=== PATIENT | female | born 1995 | race Caucasian/White ===

== ENCOUNTER → 2020-11-16 13:48 | Outpatient (CLI) | payer BC, SELFPAY ==
--- NOTE | ~2020-11-16 | US_ITS ---
EXAMINATION: US pelvic complete EXAM DATE: 11/16/2020 14:05 INDICATION: Pelvic pain. TECHNIQUE: Pelvic transabdominal sonogram was performed. There are multiple grayscale and Doppler im ages available for interpretation. Comparison is made to prior examination from 08/06/2017. FINDINGS: Uterus measures 7.3 x 2.9 x 5.5 cm, is anteverted and morphologically normal. Endometrial stripe measures 7 mm, within normal limits. There is no free pelvic fluid. Right adnexa: The ovary measures 2.4 x 1.5 x 2.0 cm and is morphologically normal. Ovarian vascular f low confirmed. Left adnexa: The ovary measures 2.5 x 1.1 x 2.2 cm and is morphologically normal. Ovarian vascular fl ow confirmed. IMPRESSION: 1. Unremarkable pelvic ultrasound exam. Reviewed, dictated and finalized at location A. T MARKETING SPECIALIST
== END ==
PROVIDERS: Visit Provider Nurse Practitioner
DX: R10.2 Pelvic and perineal pain (principal)
CPT/HCPCS: 76856

== ENCOUNTER 2021-01-25 13:21 | Outpatient (CLI) | payer BC, SELFPAY ==
--- NOTE | ~2021-01-25 | CT_ITS ---
EXAMINATION: CT sinus wo con DATE: 01/25/2021 13:40 INDICATION: Chronic sinusitis TECHNIQUE: Computed tomography (CT) of the paranasal sinuses was performed without contrast. Iterativ e reconstruction technique was employed. Exam dose: 255.64 mGy-cm total exam DLP. COMPARISON: 12/21/2016 CT sinuses FINDINGS: There is mild rightward bowing of the nasal septum. There is prominent asymmetric soft tiss ue thickening of the right inferior nasal turbinate. There is opacification of the maxillary ostium and infundibulum bilaterally. There is complete opacification of the right frontal and diminutive left frontal sinuses and extensiv e patchy opacification of ethmoid air cells bilaterally. There is mildly prominent mucoperiosteal thi ckening of the maxillary and sphenoid sinuses. These findings are substantially increased compared to . The mastoid air cells are normally developed and aerated. IMPRESSION: Mild rightward bowing of nasal septum Asymmetric right inferior nasal turbinate soft tissue swelling Opacification of ostiomeatal units Pansinusitis Reviewed, dictated and finalized at Location A. Reviewed, dictated and finalized at location A.
== END 2021-01-25 13:22 | disposition home or self-care (01) ==
LOC: ANHIMG 13:27
PROVIDERS: Visit Provider Otolaryngology
DX: J32.9 Chronic sinusitis, unspecified (principal); J34.89 Other specified disorders of nose and nasal sinuses; J34.3 Hypertrophy of nasal turbinates; J34.2 Deviated nasal septum
CPT/HCPCS: 70486

== ENCOUNTER → 2021-02-08 01:24 | Outpatient (CLI) | payer BC, SELFPAY ==
[2021-02-09 19:27] LABS: SARS-CoV-2 RNA PCR Negative
== END ==
PROVIDERS: Visit Provider Otolaryngology
DX: Z01.812 Encounter for preprocedural laboratory examination (principal); Z20.822 Contact with and (suspected) exposure to COVID-19
CPT/HCPCS: C9803; U0003; U0005

== ENCOUNTER 2021-02-11 00:57 | Day surgery (SDC) | payer BC, SELFPAY ==
[2021-02-02 08:59] VITALS: BMI 53.6
--- NOTE | 2021-02-10 09:24 | PM.IMHP ---
H&P: HPI History of Present Illness Date/Time: 02/10/21 09:24 25-year-old female presents with a history of chronic sinusitis with nasal polyps as well as nasal obstruction septal deviation and turbinate hypertrophy. Presents for planned surgical procedure. Reports no new symptoms or changes in medical history. Chief Complaint: Chronic sinusitis, recurrent sinusitis, nasal obstruction, septal deviation, inferior turbinate hypertrophy, nasal congestion, nasal polyps Review of Systems Constitutional: Constitutional: Denies fatigue, Denies fever(s) and Denies lethargy Eyes: Eyes: Denies blurry vision and Denies change in vision ENT: Reports as per HPI Cardiovascular: Cardiovascular: Denies chest pain Respiratory: Respiratory: Denies cough Endocrine: Endocrine: Denies fatigue Hematologic/Lymphatic: Hematologic/Lymphatic: Denies easy bleeding, Denies easy bruising and Denies lymphadenopathy Allergic/Immunologic: Allergic/Immunologic: Denies seasonal rhinorrhea [facility] Past Medical History Medical History (Updated 02/10/21 @ 09:25 by Vel Kinney MD) Anemia Anxiety Arthritis Asthma Bleeding gums Bleeding nose Chronic headaches Depression Food allergy History of hoarseness Keratosis Latex allergy Left ankle sprain Peroneal neuritis Sciatica associated with disorder of lumbar spine Seasonal allergies Seizures SOB (shortness of breath) on exertion Vision loss Weight gain Family History Family History (Updated 01/06/21 @ 10:31 by Steph Rivas CMA) Mother Asthma Grandparent Asthma Cancer Diabetes mellitus Hypertension Depression Heart disease Cerebrovascular accident Thyroid disorder COPD (chronic obstructive pulmonary disease) Other Arthritis Neuropathy Social History Social History (Updated 01/06/21 @ 10:31 by Steph Rivas CMA) Smoking status: Never smoker Alcohol intake: never Substance use: never Substance use type: does not use Gender identity (if verbalized by the patient): Female Spiritual care concerns: No Meds Home Medications and Allergies Home Medications Medication Instructions Recorded Confirmed Type cholecalciferol (vitamin D3) 25 100 mcg PO DAILY 06/02/20 02/02/21 History mcg (1,000 unit) capsule montelukast 10 mg tablet 10 mg PO DAILY 06/02/20 02/02/21 History azelastine 137 mcg (0.1 %) nasal 137 mcg NASAL DAILY 06/03/20 02/02/21 History spray aerosol alprazolam 0.5 mg tablet 0.5 mg PO DAILY PRN 01/06/21 02/02/21 History biotin 10,000 mcg PO DAILY 02/02/21 02/02/21 History budesonide 2 spray INTRANASAL BID 02/02/21 02/02/21 History kpjfstz-zdfjiicgw-ghqy 1 tablet PO DAILY 02/02/21 02/02/21 History cetirizine 10 mg PO DAILY 02/02/21 02/02/21 History famotidine 20 mg PO MONTHLY 02/02/21 02/02/21 History hfhllrplbqf-czoezyyza-kbordzty 1 inh INHALATION DAILY 02/02/21 02/02/21 History [Trelegy Ellipta] levalbuterol tartrate 2 inh INHALATION Q6H PRN 02/02/21 02/02/21 History levonorgestrel-ethinyl estrad 1 tablet PO HS 02/02/21 02/02/21 History [Lutera (28)] sertraline 100 mg PO DAILY 02/02/21 02/02/21 History Allergies Allergy/AdvReac Type Severity Reaction Status Date / Time garlic Allergy Severe Anaphylactic Verified 02/02/21 08:51 Shock mold Allergy Severe Anaphylactic Verified 02/02/21 08:51 Shock latex Allergy Intermediate Rash Verified 02/02/21 08:51 prednisone Allergy Intermediate elevated Verified 02/02/21 08:51 heart rate hydrocodone AdvReac Severe Vomiting Verified 02/02/21 08:51 Grass Allergy Mild hives Uncoded 02/02/21 08:51 Exam Const: General: cooperative, healthy appearing, comfortable, well developed and alert HENMT: Head: normal to inspection, normocephalic and atraumatic Ears: hearing grossly normal bilaterally, external ears normal, TM's normal bilaterally and EAC's normal General nose exam: Normal external nose present, Normal nares present, nasal polyps, mucous membranes a
--- NOTE | 2021-02-10 10:24 | WPDANESEPPF ---
Anes - Initial Pre Proc Eval Procedure: Operation Date: 02/11/21 08:00 Proposed Procedures p Septoplasty - Vel Kinney MD s Image Guided Bilateral Inferior Turbinectomy, Bilateral Maxillary Antrostomy, Total Ethmoidectomy, Sphenoidotomy, Frontal Sinusotomy - Vel Kinney MD Date/Time: 02/10/21 10:24 Surgeon: Vel Kinney MD Pre Op Diagnosis: septal deviation, chronic sinusitis Patient Data Age: 25 Gender: F Height: 1.52 m Weight: 124.74 kg Allergies Allergy/AdvReac Type Severity Reaction Status Date / Time garlic Allergy Severe Anaphylactic Verified 02/02/21 08:51 Shock mold Allergy Severe Anaphylactic Verified 02/02/21 08:51 Shock latex Allergy Intermediate SKIN Verified 02/11/21 06:42 BUBBLY AND TURNS PURPLE prednisone Allergy Intermediate elevated Verified 02/02/21 08:51 heart rate hydrocodone AdvReac Severe Vomiting Verified 02/02/21 08:51 Grass AdvReac Mild WATERY Uncoded 02/11/21 06:42 EYES/SKIN BURNING Home Medications Medication Instructions Recorded Confirmed Type cholecalciferol (vitamin D3) 25 100 mcg PO DAILY 06/02/20 02/11/21 History mcg (1,000 unit) capsule montelukast 10 mg tablet 10 mg PO DAILY 06/02/20 02/11/21 History azelastine 137 mcg (0.1 %) nasal 137 mcg NASAL DAILY 06/03/20 02/11/21 History spray aerosol alprazolam 0.5 mg tablet 0.5 mg PO DAILY PRN 01/06/21 02/11/21 History biotin 10,000 mcg PO DAILY 02/02/21 02/11/21 History budesonide 2 spray INTRANASAL BID 02/02/21 02/11/21 History nennqil-slngfmmwh-nuju 1 tablet PO DAILY 02/02/21 02/11/21 History cetirizine 10 mg PO DAILY 02/02/21 02/11/21 History famotidine 20 mg PO MONTHLY 02/02/21 02/11/21 History iwagibkncdb-jumwrxzjz-wpdtiqdz 1 inh INHALATION DAILY 02/02/21 02/11/21 History [Trelegy Ellipta] levalbuterol tartrate 2 inh INHALATION Q6H PRN 02/02/21 02/11/21 History levonorgestrel-ethinyl estrad 1 tablet PO HS 02/02/21 02/11/21 History [Lutera (28)] sertraline 100 mg PO DAILY 02/02/21 02/11/21 History Patient hx anesthesia problems: none Family hx anesthesia problems: none PMFSH Past Medical History Medical History (Updated 02/10/21 @ 09:25 by Vel Kinney MD) Anemia Anxiety Arthritis Asthma Bleeding gums Bleeding nose Chronic headaches Depression Food allergy History of hoarseness Keratosis Latex allergy Left ankle sprain Peroneal neuritis Sciatica associated with disorder of lumbar spine Seasonal allergies Seizures SOB (shortness of breath) on exertion Vision loss Weight gain Family History Family History (Updated 01/06/21 @ 10:31 by Steph Rivas CMA) Mother Asthma Grandparent Asthma Cancer Diabetes mellitus Hypertension Depression Heart disease Cerebrovascular accident Thyroid disorder COPD (chronic obstructive pulmonary disease) Other Arthritis Neuropathy Social History Social History (Updated 01/06/21 @ 10:31 by Steph Rivas CMA) Smoking status: Never smoker Alcohol intake: never Substance use: never Substance use type: does not use Living arrangements: with family Gender identity (if verbalized by the patient): Female Spiritual care concerns: No Anes - Eval Final PreProcedure Day of Procedure 02/10/21 10:24 Patient weight: super morbidly obese Heart: regular rate and rhythm Lungs: clear to auscultation and normal air movement Airway: Mallampati scale class III Neurological: alert and oriented Last oral intake: >/= 8 hours ASA classification: III Emergent: no Anesthetic plan: proceed Anesthesia type and monitoring: general ETT and standard monitoring Informed Consent: The patient's anesthetic plan and its attendant risks and benefits were discussed with the patient/family/POA. Questions were solicited and answers provided to the satisfaction of the patient/family/POA.
[2021-02-11] VITALS (14 sets, daily range): BP systolic 125–161; BP diastolic 72–94; PULSE 81–126; RESP 16–22; TEMP 36.3–36.4; O2SAT 94–100
[2021-02-11] MEDS: ACETAMINOPHEN 500 MG TABLET 1000 MG PO (06:52)
--- NOTE | 2021-02-11 07:02 | WPDHPUPDATE1 ---
History and Physical Update Update Date/Time: 02/11/21 07:02 History and Physical has been reviewed, including an updated exam of the patient. There are NO changes in the patient's condition. Risks, benefits, and alternatives have been discussed and questions answered. Patient agrees to proceed with procedure.
[2021-02-11] MEDS: LACTATED RINGERS 1,000 ML 30 ML IV CONT ×3 (07:10→12:35)
[2021-02-11] MEDS: ceFAZolin SODIUM 1 GM VIAL IV PUSH (08:05)
[2021-02-11] MEDS: ceFAZolin 2 GM/D5W 50 ML 2 GM/50 ML BAG IVPB (08:05)
[2021-02-11] MEDS: OXYMETAZOLINE HCL 0.05% NAS 15 ML BTL (*BKC) 1 SPRAY NASAL (08:20)
[2021-02-11] MEDS: LIDO 1%/EPINEPHRINE 1:100,000 50 ML VIAL INFILTRATE (08:47)
[2021-02-11] MEDS: fentaNYL CITRATE INJ (*CRX) 100 MCG/2 ML VIAL 25 MCG IV PUSH ×4 (11:36→12:28)
--- NOTE | 2021-02-11 11:57 | PM.PROC ---
Procedure Note - Detailed Date of procedure: 02/11/21 Pre-op diagnosis: septal deviation, chronic sinusitis Nasal polyps inferior turbinate hypertrophy Post-op diagnosis: same (Other than septal deviation) Procedure performed: 1. Bilateral endoscopic maxillary antrostomies 2. Bilateral endoscopic total ethmoidectomies 3. Bilateral endoscopic sphenoidotomies with tissue removal bilaterally 4. Endoscopic frontal sinusotomies 5. Right frontal sinusotomy drill out 6. Inferior turbinate reduction without fracture 7. Bilateral middle turbinectomies Description of procedure: The patient was correctly identified and consent was verified in the preoperative holding area. The patient was then brought to the operating room and a time-out was performed. General anesthesia was induced and endotracheal tube was secured the patient's airway and taped to the left lower lip. The patient was then prepped and draped for the aforementioned procedures. Image guidance was initiated. Afrin-soaked pledgets were placed for 5 minutes the bilateral nasal passages then removed. Under endoscopic guidance the bilateral nasal passages reviewed. Nasal polyps and purulence were noted in the bilateral middle meati eye. The septum was relatively midline and nonobstructive. The inferior turbinates were hypertrophied. A backbiter was utilized to complete the bilateral maxillary antrostomies. Total ethmoidectomies were completed using a Kerrison as well as micro debrider. The sphenoid os is were identified and widened using sphenoid punches micro debrider and care since of note edematous polypoid tissue was located in the bilateral sphenoid sinuses and removed. The frontal sinuses were located, the left being very small this was opened easily using Kerrison under 70 degree endoscopic guidance and Cobra frontal sinus instruments. The right was located and only able to be cannulated using the frontal sinus seeker. At this point the decision was made to drill out the sinus. The will turbinates were then removed provide easy access. The left was removed because it contained edematous polypoid tissue emanating from it. The right also had this characteristic. High speed his 70 degree drill was then utilized to perform a frontal sinus drill out on the right the entire time under endoscopic guidance. When the new duke ostium was wide enough surgery ended. A propel mini stent was placed in the right frontal sinus duke ostium. The bilateral inferior turbinates were outfractured and debrided of edematous polypoid tissue and mulberry tips. There were then cauterized with Bovie suction electrocautery. Of note the bilateral middle turbinates Tums were also cauterized and hemostasis was excellent. This marked the end the procedure. Care the patient was turned over to Anesthesiology. I performed all dictated portions. Surgeon: Vel Kinney MD Estimated blood loss (mL): 100 Drains: No Packing: No Pathology: none sent Complications: No immediate complications Condition: stable Disposition: PACU
[2021-02-11] MEDS: ONDANSETRON INJ 4 MG/2 ML VIAL IV PUSH (12:39)
[2021-02-11] MEDS: ONDANSETRON HCL ODT 4 MG TABLET PO (14:42)
== END 2021-02-11 15:18 | disposition home or self-care (01) ==
PROVIDERS: Visit Provider Otolaryngology
PROC: (CPT 30999; 2021-02-11 08:00)
DX: J34.2 Deviated nasal septum (principal); J32.9 Chronic sinusitis, unspecified; J33.9 Nasal polyp, unspecified; J34.3 Hypertrophy of nasal turbinates; Z79.51 Long term (current) use of inhaled steroids; J45.909 Unspecified asthma, uncomplicated; D64.9 Anemia, unspecified; F41.8 Other specified anxiety disorders; E66.01 Morbid (severe) obesity due to excess calories; Z68.43 Body mass index [BMI] 50.0-59.9, adult
CPT/HCPCS: 30999; 31256; 31257; 31253; 61782; 30140; A9270; C2625; J0330; J0690; J1100; J2250; J2405; J2704; J3010; J7030; J7120

== ENCOUNTER → 2022-04-11 12:44 | Outpatient (CLI) | payer BC, SELFPAY ==
--- NOTE | ~2022-04-11 | US_ITS ---
EXAMINATION: US pelvic complete DATE: 04/11/2022 14:05 INDICATION: Left lower quadrant pain Comparison:11/16/2020 TECHNIQUE: Multiple transabdominal and endovaginal sonographic images of the pelvis performed. FINDINGS: The uterus measures 6.4 x 2.6 x 5.5 cm. The endometrial complex measures 5 mm. The right ovary measures 2.8 x 1.7 x 2.8 cm and the left ovary measures 2.5 x 2.4 x 2.3 cm. There ar e small follicles in each ovary. Normal doppler signal in both ovaries. There is no free fluid in the pelvis. There are no abnormal masses seen on either side. IMPRESSION: 1. Unremarkable pelvic ultrasound. Reviewed, dictated and finalized at location A.
== END ==
PROVIDERS: PCP Nurse Practitioner; Visit Provider Nurse Practitioner
DX: R10.2 Pelvic and perineal pain (principal)
CPT/HCPCS: 76856

== ENCOUNTER 2022-08-03 18:05 | Emergency (ER) | payer BC, SELFPAY ==
--- NOTE | ~2022-08-03 | CT_ITS ---
EXAMINATION: CT abdomen pelvis w con INDICATION: Left lower quadrant pain TECHNIQUE: Computed tomographic images of the abdomen and pelvis were obtained after the administrati on of 100 cc of Omnipaque 350 intravenous contrast. The dose-length product (DLP) was 1589.99 mGy-cm. Automated exposure control and iterative reconstruction technique were employed. COMPARISON: None available FINDINGS: A calcified granuloma is present in the right middle lobe. The heart size is normal. The li abhijit, spleen, pancreas, gallbladder, and adrenal glands are normal. The kidneys are unremarkable. No p athologically enlarged abdominal or pelvic lymph nodes are identified. There is no free intraperitone al gas or evidence of bowel obstruction. The appendix is normal. IMPRESSION: 1. No CT correlate for the patient's symptoms. Reviewed, dictated and finalized at location F. CTURAL RIGGER
[2022-08-03 18:28] VITALS: BP 147/85; PULSE 120; RESP 16; TEMP 36.6; O2SAT 99
[2022-08-03 18:47] LABS: Basophils Absolute Auto 0.1 K/mm3 (0.0-0.1); Basophils Percent Auto 0.4 % (0.2-1.2); Eosinophils Absolute Auto 0.1 K/mm3 (0-0.3); Hematocrit 40.5 % (37.0-47.0); Hemoglobin 13.5 g/dL (12.0-15.0); Immature Granulocyte Absolute 0.06 K/mm3 (0.00-0.031); Immature Granulocyte Percent A 0.5 % (0-0.5); Lymphocytes Absolute Auto 2.93 K/mm3 (0.9-3.2); Lymphocytes Percent Auto 22.4 % (18.3-44.2); Mean Corpuscular HGB Conc 33.3 g/dl (32-36); Mean Corpuscular Hemoglobin 30.5 pg (26-34); Mean Corpuscular Volume 91.4 fl (80-100); Mean Platelet Volume 9.8 fl (7.4-10.4); Monocytes Absolute Auto 0.8 K/mm3 (0.1-0.6); Monocytes Percent Auto 5.9 % (2.6-8.5); Neutrophils Absolute Auto 9.1 K/mm3 (1.3-6.7); Neutrophils Percent Auto 69.8 % (45.5-73.1); Platelet Count Result 322 k/mm3 (150-375); Red Blood Count 4.43 M/mm3 (4.2-5.4); Red Cell Distribution Width 13.5 % (11.5-14.5); White Blood Count 13.1 K/mm3 (4.5-10.0)
[2022-08-03 19:13] LABS: Beta HCG Quantitative < 2.39 mIU/ML
--- NOTE | 2022-08-03 21:14 | ED.GENADULT ---
HPI - General Adult General Chief complaint: Abdominal Pain Stated complaint: ectopic, pain Time Seen by Provider: 08/03/22 20:48 History of Present Illness HPI narrative: Patient is a 26-year-old female who presents the emergency department with chief complaint of left lower quadrant pain. Patient reports that she has recently had a positive test and some symptoms with her negative test reports that she had some heavy bleeding and subsequently that is tapered off and currently is not having any vaginal bleeding or vaginal discharge patient reports she has history of IBS and reported that she started having pain in the left lower quadrant patient states pain is sharp worse with movement and improved with rest patient denies fever denies chills denies vomiting or diarrhea. Related Data Home Medications Medication Instructions Recorded Confirmed montelukast 10 mg tablet 10 mg PO DAILY 06/02/20 07/06/22 biotin 10,000 mcg capsule 10,000 mcg PO DAILY 02/02/21 07/06/22 cetirizine 10 mg tablet 10 mg PO DAILY 02/02/21 07/06/22 fluticasone fur. 200 mcg-umeclid 1 inh inhalation DAILY 02/02/21 07/06/22 62.5 mcg-vilant 25 mcg inhalat.powder (Trelegy Ellipta) levalbuterol tartrate 45 2 inh inhalation Q6H PRN 02/02/21 07/06/22 mcg/actuation aerosol inhaler Bronchospasm metformin 500 mg tablet 500 mg PO BID 06/09/21 07/06/22 dupilumab 300 mg/2 mL subcutaneous 300 mg subcut ONCE 10/03/21 07/06/22 pen injector ([employer]) cholecalciferol (vitamin D3) 250 250 mcg PO .COMPLEX 06/29/22 07/06/22 mcg (10,000 unit) capsule sertraline 100 mg tablet 100 mg PO DAILY 06/29/22 07/06/22 vitamin B complex 1 tablet PO DAILY 06/29/22 07/06/22 famotidine 10 mg tablet 10 mg PO DAILY 07/06/22 07/06/22 Allergies Allergy/AdvReac Type Severity Reaction Status Date / Time garlic Allergy Severe Anaphylactic Verified 07/06/22 09:54 Shock mold Allergy Severe Anaphylactic Verified 07/06/22 09:54 Shock latex Allergy Intermediate SKIN Verified 07/06/22 09:54 BUBBLY AND TURNS PURPLE prednisone Allergy Intermediate elevated Verified 07/06/22 09:54 heart rate hydrocodone AdvReac Severe Vomiting Verified 07/06/22 09:54 Grass AdvReac Mild WATERY Uncoded 06/29/22 10:10 EYES/SKIN BURNING Review of Systems Review of Systems: A 10 system review of systems was completed on the patient and is negative except for what is stated in the HPI. Nursing and ancillary documentation was reviewed. PMFSH Past Medical History Medical History Anemia Anxiety Arthritis Asthma Bleeding gums Bleeding nose Chronic headaches Depression Food allergy History of hoarseness Keratosis Latex allergy Left ankle sprain Nausea & vomiting Obese Peroneal neuritis Regurgitation of food Sciatica associated with disorder of lumbar spine Seasonal allergies Seizures SOB (shortness of breath) on exertion Vision loss Weight gain Family History Family History Mother Asthma Grandparent Asthma Cancer Diabetes mellitus Hypertension Depression Heart disease Cerebrovascular accident Thyroid disorder COPD (chronic obstructive pulmonary disease) Other Arthritis Family history of arthritis Neuropathy Social History Social History Social History: Caffeine- occasionally soda Smoking status: Never smoker Alcohol intake: current Alcohol use details: 1 per year Substance use: never Substance use type: does not use Gender identity (if verbalized by the patient): Female Sexual Orientation (if Verbalized by the Patient): Straight or Heterosexual Spiritual care concerns: No Exam Narrative: GENERAL: Well-appearing, well-nourished, and in no acute distress. HEAD: Normocephalic, atraumatic. EYES: PERRLA a
[2022-08-03] MEDS: ONDANSETRON INJ 4 MG/2 ML VIAL IV PUSH (21:18)
[2022-08-03] MEDS: SODIUM CHLORIDE 0.9% IV 1,000 ML 999 ML IV CONT (21:18)
[2022-08-03 21:46] LABS: Alanine Aminotransferase 23 U/L (6-35); Albumin Level 4.1 g/dL (3.5-5.1); Alkaline Phosphatase 93 U/L (38-126); Anion Gap 12 mmol/L (8-16); Aspartate Amino Transferase 33 U/L (14-36); Bilirubin,Total 0.4 mg/dL (0.2-1.3); Blood Urea Nitrogen 18 mg/dL (7-17); Calcium 9.2 mg/dL (8.4-10.2); Carbon Dioxide 22 mmol/L (22-30); Chloride 104 mmol/L (98-107); Estimated CRCL calculation 116 ml/min; Estimated Glomerular Filt Rate > 60; Glucose 97 mg/dL (65-110); Lipase 85 U/L (23-300); Sodium 138 mmol/L (137-145)
== END 2022-08-03 23:15 | disposition home or self-care (01) ==
PROVIDERS: Emergency Medicine; Emergency Provider Emergency Medicine; PCP Emergency Medicine
DX: R10.32 Left lower quadrant pain (principal); M19.90 Unspecified osteoarthritis, unspecified site; F41.9 Anxiety disorder, unspecified; J45.909 Unspecified asthma, uncomplicated; F32.9 Major depressive disorder, single episode, unspecified; G40.909 Epilepsy, unspecified, not intractable, without status epilepticus
CPT/HCPCS: 36415; 74177; 80053; 83690; 84702; 85025; 85461; 86850; 86900; 86901; 96361; 96374; 99284; J2405; J7030; Q9967

== ENCOUNTER 2022-11-07 13:10 | Outpatient (CLI) | payer BC, SELFPAY ==
--- NOTE | ~2022-11-07 | US_ITS ---
Pelvic ultrasound. Clinical History: Pelvic pain Technique: Realtime transabdominal scanning of the pelvis was performed. Color flow Doppler and Doppl er spectral analysis were performed. Findings: The uterus is anteverted. The endometrial stripe has a thickness of 4 mm. No focal mass is identified. The right ovary measures 2.6 x 1.5 x 2.3 cm. No significant right ovarian or adnexal mass is seen. The left ovary measures 1.6 x 2.3 x 1.5 cm. No significant left ovarian or adnexal mass is seen. *Flow present in both ovaries on Doppler spectral analysis. There is no evidence of free fluid in the cul de sac. Impression: Unremarkable pelvic ultrasound. Reviewed, dictated and finalized at location . E CARPENTER HELPER Impression: Unremarkable pelvic ultrasound.
== END 2022-11-07 13:11 ==
PROVIDERS: PCP Emergency Medicine; Visit Provider Nurse Practitioner
DX: R10.2 Pelvic and perineal pain (principal)
CPT/HCPCS: 76856

== ENCOUNTER → 2022-12-15 13:46 | Outpatient (CLI) | payer BC, SELFPAY ==
--- NOTE | ~2022-12-15 | US_ITS ---
EXAMINATION: US OB transvaginal DATE: 12/15/2022 14:16 INDICATION: First trimester dating TECHNIQUE: Real-time pelvic transabdominal and transvaginal ultrasound was performed. COMPARISON: None. FINDINGS: The uterus measures 7.3 x 4 x 4.3 cm. There is an intrauterine gestational sac. A yolk sac is identified. heart motion is identified measuring 124 beats per minute (bpm) by M-mode Dopple r. The crown rump length measures 5 mm, which correlates with an estimated gestational age of 6 weeks and 1 day(s) (+/-) 4 day(s). The left ovary is not visualized however no left adnexal abnormality is seen. The right ovary measure s 3.6 x 2.2 x 2.8 cm. There is normal vascular flow in the right ovary. There is no free fluid in the pelvis. IMPRESSION: 1. Live intrauterine with an estimated gestational age of 6 weeks and 1 day(s) (+/-) 4 day( s) and an estimated delivery date of 08/09/2023. Reviewed, dictated and finalized at location F. IMPRESSION: 1. Live intrauterine with an estimated gestational age of 6 weeks and 1 day(s) (+/-) 4 day(s) and an estimated delivery date of 08/09/2023.
== END ==
PROVIDERS: PCP Emergency Medicine; Visit Provider Obstetrics & Gynecology Gynecology
DX: Z36.87 Encounter for antenatal screening for uncertain dates (principal); Z3A.01 Less than 8 weeks gestation of pregnancy
CPT/HCPCS: 76817

== ENCOUNTER → 2022-12-28 13:35 | Outpatient (CLI) | payer BC, SELFPAY ==
--- NOTE | ~2022-12-28 | US_ITS ---
Pelvic ultrasound. Clinical History: First trimester , vaginal bleeding Technique: Realtime transabdominal and transvaginal scanning of the pelvis was performed. Color flow Doppler and Doppler spectral analysis were performed. Findings: The uterus is anteverted. Intrauterine gestation is present, with estimated gestational age of 8 weeks 0 days based on crown-rump length of 1.6 cm. Subchorionic hemorrhage measures 6 mm in max imum diameter. heart rate is 169 bpm.. Neither ovary visualized. No other adnexal mass seen. There is no evidence of free fluid in the cul de sac. Impression: Live intrauterine gestation with estimated gestational age of 8 weeks 0 days. heart rate is 169 bpm. 6 mm subchorionic hemorrhage. Reviewed, dictated and finalized at location . Impression: Live intrauterine gestation with estimated gestational age of 8 weeks 0 days. F etal heart rate is 169 bpm. 6 mm subchorionic hemorrhage.
== END ==
PROVIDERS: PCP Emergency Medicine; Visit Provider Advanced Practice Midwife
DX: O26.851 Spotting complicating pregnancy, first trimester (principal); O36.80X0 Pregnancy with inconclusive fetal viability, not applicable or unspecified; Z3A.08 8 weeks gestation of pregnancy
CPT/HCPCS: 76801

== ENCOUNTER → 2023-01-18 12:51 | Outpatient (CLI) | payer BC, SELFPAY ==
--- NOTE | ~2023-01-18 | US_ITS ---
EXAMINATION: US OB limited DATE: 01/18/2023 13:13 INDICATION: Subchorionic hematoma TECHNIQUE: Real-time ultrasound of the pelvis was performed utilizing transabdominal probe. The inter preting radiologist was not present for the study. COMPARISON: 12/28/2022 FINDINGS: The uterus measures 10.2 x 6.8 x 7.8 cm. There is an intrauterine gestational sac.Single pole is identified. heart motion is identified measuring 156 beats per minute (bpm) by M-mode Dopple r. No evident subchorionic hematoma. There is no free fluid in the pelvis. IMPRESSION: 1. Single living fetus with heart rate of 156 bpm. 2. No evident subchorionic hematoma. Reviewed, dictated and finalized at location L.
== END ==
PROVIDERS: PCP Emergency Medicine; Visit Provider Obstetrics & Gynecology Gynecology
DX: O36.8910 Maternal care for other specified fetal problems, first trimester, not applicable or unspecified (principal)
CPT/HCPCS: 76815

== ENCOUNTER → 2023-03-28 11:14 | Outpatient (CLI) | payer BC, SELFPAY ==
--- NOTE | ~2023-03-28 | US_ITS ---
EXAMINATION: US OB /maternal detail DATE: 03/28/2023 12:22 INDICATION: Second trimester anatomic survey TECHNIQUE: Real-time ultrasound of the pelvis was performed. COMPARISON: None. FINDINGS: There is a single living fetus in variable presentation. The placenta is anterior and 3.9 cm from the internal cervical os. The cervical length is 4 cm. heart rate is 145 beats per minute (bpm). cardiac activity and movement are noted. The amniotic fluid index is subjectively normal. The intracranial and cardiac anatomy is not well demonstrated due to positioning. The following anatomy was identified as normal: 4 chamber heart 3 vessel cord cord insertion kidneys urinary bladder stomach spine diaphragm The following biometric data were obtained: Biparietal diameter (BPD): 5.0 cm; head circumference (HC): 18.5 cm; abdominal circumference (AC): 15 .6 cm; femur length (FL): 3.5 cm. These measurements are concordant. Estimated weight is 381 g +/- 57 g, which correlates with the 44th percentile when 08/09/2023 i s used as estimated date of delivery. As single measurements, these parameters are each equal to the following estimated gestational ages w ith ranges of +/- 2 standard deviations: BPD: 21 weeks 1 days ( 19 weeks 3 days - 22 weeks 6 days). HC: 20 weeks 6 days ( 19 weeks 2 days - 22 weeks 2 days). AC: 20 weeks 5 days ( 18 weeks 5 days - 22 weeks 6 days). FL: 20 weeks 6 days ( 19 weeks 1 days - 22 weeks 5 days). estimated gestational age based solely on measurements from this exam is 20 weeks 6 days +/- 1 weeks 3 days. IMPRESSION: 1. Single living fetus in variable presentation. 2. Estimated weight is 381 g +/- 57 g, which correlates with the 44th percentile when 3 is used as estimated date of delivery. 3. Incomplete visualization of the intracranial and cardiac anatomy due to positioning. Reviewed, dictated and finalized at location B. IMPRESSION: 1. Single living fetus in variable presentation. 2. Estimated weight is 381 g +/- 57 g, which correlates with the 44th per centile when 08/09/2023 is used as estimated date of delivery. 3. Incomplete visualization of the intracranial and cardiac anatomy due to feta l positioning.
== END ==
PROVIDERS: PCP Emergency Medicine; Visit Provider Advanced Practice Midwife
DX: Z36.9 Encounter for antenatal screening, unspecified (principal); Z3A.20 20 weeks gestation of pregnancy
CPT/HCPCS: 76805

== ENCOUNTER → 2023-04-24 10:47 | Outpatient (CLI) | payer BC, SELFPAY ==
--- NOTE | ~2023-04-24 | US_ITS ---
EXAMINATION: US OB follow up DATE: 04/24/2023 11:19 INDICATION: Incomplete anatomic survey. TECHNIQUE: Real-time ultrasound of the pelvis was performed. COMPARISON: Ultrasound 03/28/2023, 12/28/2022, 12/15/2022 FINDINGS: There is a single living fetus in vertex presentation. The placenta is anterior, 5.9 cm from the cer vix. heart rate is 133 beats per minute (bpm). The amniotic fluid index is 7.6 cm, which is nor mal. The following biometric data were obtained: Biparietal diameter (BPD): 5.7 cm; head circumference (HC): 22.2 cm; abdominal circumference (AC): 20 .7 cm; femur length (FL): 4.4 cm. These measurements are concordant. Estimated weight is 740 g +/- 111 g, which correlates with the 46th percentile when 08/09/23 is used as estimated date of delivery. As single measurements, these parameters are each equal to the following estimated gestational ages: BPD: 23 weeks 2 days. HC: 24 weeks 2 days. AC: 25 weeks 2 days. FL: 24 weeks 4 days. estimated gestational age based solely on measurements from this exam is 24 weeks 3 days +/- 1 weeks 5 days. The ventricles, cisterna magna, and heart are normal. IMPRESSION: 1. Single living fetus in vertex presentation. 2. Estimated weight is 740 g +/- 111 g, which correlates with the 46th percentile when 3 is used as estimated date of delivery. This date was set by ultrasound on 12/15/2022. 3. Normal cerebral ventricles, cisterna magna, and heart. Reviewed, dictated and finalized at location A. IMPRESSION: 1. Single living fetus in vertex presentation. 2. Estimated weight is 740 g +/- 111 g, which correlates with the 46th p ercentile when 08/09/23 is used as estimated date of delivery. This date was se t by ultrasound on 12/15/2022. 3. Normal cerebral ventricles, cisterna magna, and heart.
== END ==
PROVIDERS: PCP Obstetrics & Gynecology Gynecology; Visit Provider Obstetrics & Gynecology Gynecology
DX: O36.62X0 Maternal care for excessive fetal growth, second trimester, not applicable or unspecified (principal); Z3A.24 24 weeks gestation of pregnancy
CPT/HCPCS: 76816

== ENCOUNTER 2023-05-29 16:43 | Observation (INO) | payer BC, SELFPAY ==
--- NOTE | 2023-05-29 16:43 | OBADM ---
This patient, Cherri Damian, admitted to the OB room OB Post 116 for observation. Patient/family oriented to hospital policies and general routines including ID bracelet, bed and alarms, visiting hours, pain management, procedures, bathroom and other care routines, personal items, smoking policy, room service/diet, and visiting hours. Patient/Family are encouraged to report perceived risks to care and to ask questions if they do not understand what they are told or what they should do.
[2023-05-29 17:10] VITALS: BP 117/46; PULSE 89; TEMP 36.6
[2023-05-29 17:16] VITALS: BP 114/59; PULSE 89
[2023-05-29 17:31] VITALS: BP 121/61; PULSE 94
[2023-05-29 17:36] VITALS: BMI 53.8
--- NOTE | 2023-05-29 17:40 | PC.NURSE ---
Caio Fontanez CNM at bedside. Report given and tracing reviewed. Speculum done per Caio Fontanez CNM. Plan of care discussed with pt.
--- NOTE | 2023-05-29 18:20 | P.PNOB_ITS ---
OB - Triage/Final Diagnosis Visit Information Date of evaluation: 05/29/23 Reason for evaluation: other (spotting) Comments/Additional reasons for admission: I have assessed the risk for this patient, Cherri Damian, and determined that she would benefit from observation care. Evaluation Baseline heart rate: 140 Variability: Moderate (11-25) monitor accelerations: Present Cervical dilation (cm): 0 Vital signs: Vital Signs - 24 hr 05/29/23 17:10 05/29/23 17:16 05/29/23 17:31 Temperature 97.8 F Pulse Rate 89 89 94 Blood Pressure 117/46 L 114/59 L 121/61 Oxygen Delivery 05/29/23 17:36 Temperature Pulse Rate Blood Pressure Oxygen Delivery Room Air Comments: S:CNM at bedside. Pt reports one episode of mucousy discharge when wiping today that was pink tinged. Photo on phone viewed. Denies trauma to abdomen, contractions, cramping, or recent intercourse. Denies leaking fluid. Good movement. O: Abdomen soft and nontender. tracing reassuring with FHTs in the 140s and 10x10 accelerations present. Tracing reassuring and appropriate for gestational age. Spec exam: Very large amount of thick, light green/yellow, clumpy vaginal discharge present covering the cervical os and vaginal gomez. Q- tip used to gently remove discharge from cervix. Cervix visually closed and appears long. Negative valsalva, no bleeding. A/P: 1. Vaginal bleeding in - no evidence of cervical dilation, PTL, or ROM. Likely d/t tissue irritation from yeast. 2. Vaginal art- Rx Terazol 3. Sent to pharmacy on file. pt to follow up in office. Has appt tomorrow. Final Diagnosis (1) Spotting affecting in third trimester: Code(s): O26.853 - Spotting complicating , third trimester Status: Acute (2) Vaginal art: Code(s): B37.31 - Acute candidiasis of vulva and vagina Status: Acute
== END 2023-05-29 18:30 | disposition home or self-care (01) ==
PROVIDERS: Admitting Provider Obstetrics & Gynecology Gynecology; PCP Emergency Medicine; Visit Provider Obstetrics & Gynecology Gynecology
DX: O26.853 Spotting complicating pregnancy, third trimester (principal); B37.31 Acute candidiasis of vulva and vagina; Z3A.29 29 weeks gestation of pregnancy
CPT/HCPCS: G0378; G0379

== ENCOUNTER → 2023-06-18 10:51 | Outpatient (CLI) | payer BC, SELFPAY ==
--- NOTE | ~2023-06-18 | US_ITS ---
EXAMINATION: US OB follow up DATE: 06/18/2023 11:18 INDICATION: Third trimester with maternal care for excessive growth. TECHNIQUE: Real-time ultrasound of the pelvis was performed. The interpreting radiologist was not pre sent for the study. COMPARISON: 04/24/2023 FINDINGS: There is a single living fetus in vertex presentation. The placenta is anterior and not low-lying. F etal heart rate is 147 beats per minute (bpm). The amniotic fluid index is 10.0 cm, which is normal (5th%-95%: 8.6-24.2 cm at 32 weeks estimated gestational age). The following biometric data were obtained: BPD: 8.1 cm -> 32 weeks 3 days Head circumference: 29.6 cm -> 32 weeks 5 days Abdominal circumference: 29.7 cm -> 33 weeks 4 days Femur length: 6.1 cm -> 31 weeks 5 days These measurements are concordant. Head circumference to abdominal circumference ratio: 1.00 (normal range 0.96-1.12). Estimated weight: 2073 g (+/-) 311 g or 4 lbs. 9 oz. (+/-) 11 oz. IMPRESSION: 1. Single living fetus in vertex presentation with heart rate of 147 bpm. 2. Normal amniotic fluid index of 10.0 cm. 3. Estimated weight is 50th percentile by Hadlock criteria when 08/09/2023 is used as the estim ated date of delivery (GERALDINE). Please correlate with clinical information or earlier ultrasounds for mo st accurate GERALDINE. Reviewed, dictated and finalized at location A. IMPRESSION: 1. Single living fetus in vertex presentation with heart rate of 147 bpm. 2. Normal amniotic fluid index of 10.0 cm. 3. Estimated weight is 50th percentile by Hadlock criteria when 3 is used as the estimated date of delivery (GERALDINE). Please correlate with clinic al information or earlier ultrasounds for most accurate GERALDINE.
== END ==
PROVIDERS: PCP Advanced Practice Midwife; Visit Provider Advanced Practice Midwife
DX: O36.63X0 Maternal care for excessive fetal growth, third trimester, not applicable or unspecified (principal); Z3A.00 Weeks of gestation of pregnancy not specified
CPT/HCPCS: 76816

== ENCOUNTER 2023-07-30 23:55 | Inpatient (IN) | payer BC, SELFPAY ==
[2023-07-31] VITALS (134 sets, daily range): BP systolic 80–155; BP diastolic 19–91; PULSE 58–137; RESP 16–18; TEMP 36.2–37.3; O2SAT 77–100; BMI 55.0
[2023-07-31 01:02] LABS: Basophils Percent Auto 0.2 % (0.2-1.2); Eosinophils Absolute Auto 0.1 K/mm3 (0-0.3); Hematocrit 35.1 % (37.0-47.0); Hemoglobin 11.4 g/dL (12.0-15.0); Immature Granulocyte Absolute 0.12 K/mm3 (0.00-0.031); Immature Granulocyte Percent A 1.1 % (0-0.5); Lymphocytes Absolute Auto 2.08 K/mm3 (0.9-3.2); Lymphocytes Percent Auto 19.4 % (18.3-44.2); Mean Corpuscular HGB Conc 32.5 g/dl (32-36); Mean Corpuscular Hemoglobin 30.8 pg (26-34); Mean Corpuscular Volume 94.9 fl (80-100); Mean Platelet Volume 10.9 fl (7.4-10.4); Monocytes Absolute Auto 0.8 K/mm3 (0.1-0.6); Monocytes Percent Auto 7.7 % (2.6-8.5); Neutrophils Absolute Auto 7.6 K/mm3 (1.3-6.7); Neutrophils Percent Auto 70.6 % (45.5-73.1); Platelet Count Result 229 k/mm3 (150-375); Red Cell Distribution Width 14.1 % (11.5-14.5); White Blood Count 10.7 K/mm3 (4.5-10.0)
[2023-07-31] MEDS: LACTATED RINGERS 1,000 ML 125 ML IV CONT ×2 (01:21→05:50)
[2023-07-31] MEDS: AMPICILLIN 2 GM/NS 100 ML 2 GM/100 ML BAG IVPB (01:26)
[2023-07-31 01:51] LABS: HIV 1/2 Ab P24 Ag Result Negative (Negative)
[2023-07-31] MEDS: fentaNYL CITRATE INJ (*CRX) 100 MCG/2 ML VIAL IV PUSH (02:08)
--- NOTE | 2023-07-31 02:22 | WPDANESEPP ---
Anes - Eval Pre Procedure Procedure: Labor epidural Date/Time: 07/31/23 02:22 Surgeon: Tod Preop Diagnosis: Abdominal pain with contractions Pre Op Diagnosis: Leaking,Contractions Patient Data Age: 27 Gender: F Height: 1.52 m Weight: 128 kg Last Vital Signs Pulse 107 H 07/31/23 02:16 BP 148/75 H 07/31/23 02:16 O2 Del Method Room Air 07/31/23 00:35 Allergies Allergy/AdvReac Type Severity Reaction Status Date / Time garlic Allergy Severe Anaphylactic Verified 07/11/23 14:24 Shock mold Allergy Severe Anaphylactic Verified 07/11/23 14:24 Shock latex Allergy Intermediate SKIN Verified 07/11/23 14:24 BUBBLY AND TURNS PURPLE prednisone Allergy Intermediate elevated Verified 07/11/23 14:24 heart rate hydrocodone AdvReac Severe Vomiting Verified 07/11/23 14:24 Grass AdvReac Mild WATERY Uncoded 07/11/23 14:24 EYES/SKIN BURNING Home Medications Medication Instructions Recorded Confirmed Type montelukast 10 mg tablet 10 mg PO DAILY 06/02/20 07/11/23 History biotin 10,000 mcg capsule 10,000 mcg PO DAILY 02/02/21 07/11/23 History cetirizine 10 mg tablet 10 mg PO DAILY 02/02/21 07/11/23 History metformin 500 mg tablet 500 mg PO BID 06/09/21 07/11/23 History sertraline 100 mg tablet 100 mg PO DAILY 06/29/22 07/11/23 History calcium carbonate 600 mg calcium 600 mg PO BID 12/26/22 07/11/23 History (1,500 mg) tablet (Calcium) prenat.vits,laverne,fun-ctyq-rwydh 1 tablet PO DAILY 12/26/22 03/23/23 History vitamin B complex (B 1 tablet PO DAILY 12/26/22 07/11/23 History Complex-Vitamin B12 tablet) triamcinolone acetonide 0.1 % 1 applic topical BID #80 grams 01/18/23 07/11/23 Rx topical cream omeprazole 40 mg capsule,delayed See Rx Instructions .Route 04/27/23 07/11/23 Rx release .COMPLEX #30 caps albuterol sulfate 90 mcg/actuation 2 puff inhalation Q4HWA wheezing 07/11/23 07/11/23 History aerosol inhaler fluticasone 250 mcg-salmeterol 50 1 ea inhalation DAILY 07/11/23 07/11/23 History mcg/dose blistr powdr for inhalation (Advair Diskus) Laboratory Tests 07/31/23 00:30 WBC 10.7 H K/mm3 (4.5-10.0) RBC 3.70 L M/mm3 (4.2-5.4) Hgb 11.4 L g/dL (12.0-15.0) Hct 35.1 L % (37.0-47.0) MCV 94.9 fl (80-100) MCH 30.8 pg (26-34) MCHC 32.5 g/dl (32-36) RDW 14.1 % (11.5-14.5) Plt Count 229 k/mm3 (150-375) MPV 10.9 H fl (7.4-10.4) Immature Gran % (Auto) 1.1 H % (0-0.5) Neut % (Auto) 70.6 % (45.5-73.1) Lymph % (Auto) 19.4 % (18.3-44.2) White % (Auto) 7.7 % (2.6-8.5) Eos % (Auto) 1.0 % (0-4.4) Baso % (Auto) 0.2 % (0.2-1.2) Lymph # (Auto) 2.08 K/mm3 (0.9-3.2) White # (Auto) 0.8 H K/mm3 (0.1-0.6) Eos # (Auto) 0.1 K/mm3 (0-0.3) Baso # (Auto) 0.0 K/mm3 (0.0-0.1) Abs Immat Gran (auto) 0.12 H K/mm3 (0.00-0.031) Absolute Neuts (auto) 7.6 H K/mm3 (1.3-6.7) Absolute Nucleated RBC 0.0 K/mm3 (0.0-0.012) Nucleated RBC % 0.0 % (0.0-0.2) RPR Pending HIV 1&2 Ab/P24 Ag 4thGn Negative (Negative) Blood Type O Positive Antibody Screen Negative : gestational age HCG: positive Patient hx anesthesia problems: none Family hx anesthesia problems: none Results Review: All pre-operative results and documents have been reviewed as part of the pre-operative evaluation. [facility] Past Medical History Medical History (Updated 07/31/23 @ 02:24 by Johan Gamboa CRNA) Anemia Anxiety Arthritis Asthma Bleeding gums Bleeding nose Chronic headaches Depression Food allergy History of hoarseness Keratosis Latex allergy Left ankle sprain Miscarriage Morbid obesity Nausea & vomiting Obese Peroneal neuritis and not yet delivered Regurgitation of food Sciatica associated with disorder of lumbar spine Seasonal allergies Seizures SOB (shortness of breath) on exertion Vision loss Weight gain
[2023-07-31] MEDS: SODIUM CHLORIDE 0.9% IV 300 ML 600 ML I-UTERINE (05:06)
[2023-07-31] MEDS: AMPICILLIN 1 GM/NS 50 ML 1 GM/50 ML BAG IVPB (05:26)
--- NOTE | 2023-07-31 07:34 | WPDOBADMIT ---
Obstetrics - Admit Note Admission Note: record reviewed. No pertinent additions to the history and/or any subsequent changes in the physical findings that are not consistent with the expected course of the were found. Additions to the history and/or subsequent changes in the physical findings follow. Pt admitted after SROM of clear fluid.
--- NOTE | 2023-07-31 07:34 | PM.OBPNLAB ---
Pain Control Date/time seen: 07/31/23 07:32 Pain control: tolerating well Comments: Feeling rectal pressure. Pelvic Exam Dilation (cm): 10 Effacement (%): 100 station: +2 Amniotic membrane status: Ruptured Contractions Monitor mode: Internal Contraction pattern: Regular Contraction intensity: Moderate Status status: Category ll Comments: 145 baseline. +accelerations and variable decelerations Assessment and Plan Assessment: active labor Comments: Turn off amnioinfusion at this time due to complete dilation. Will begin pushing efforts. Dr. Baron updated. Anticipate vaginal .
[2023-07-31] MEDS: OXYTOCIN 30 UNITS/NS 500 ML 30 UNITS/500 ML BAG 999 UNITS IV CONT (07:46)
--- NOTE | 2023-07-31 08:05 | PM.OBPRVD ---
OB - Vaginal Delivery Note Procedure Delivery date: 07/31/23 Events: Gestational Hypertension and Positive Group B Strep (GBS) Induction method: None Delivery monitor: Internal FHT and Internal Uterine Route of delivery: Laceration Description: Vaginal (very small 2nd degree laceration) Delivery repair: vicryl Specimen: Yes Quantitative Blood Loss (ml): 150 Anesthesia type: Epidural Disposition: Floor Complications: No immediate complications Narrative: Patient arrived to the unit after spontaneous rupture of membranes. she made cervical change and was given an epidural for analgesia. Ampicillin was given for group B strep positive status. She progressed to complete dilation. She pushed very well with a couple of contractions and brought the head to complete crown. With the next push she delivered the entire infant. the infant was placed on the maternal abdomen and dried and stimulated. After 1 minute of life, the cord was doubly clamped and cut. Cord blood, cord gases, and cord segment were obtained. There was excellent hemostasis. The fundus was very difficult to palpate due to maternal habitus, but remained firm. All delivery counts correct. [place] Baby Date of : 07/31/23 Time of : 07:43 Weeks of gestation at delivery: 38 gender: Male Weight (pounds): 6 Weight (ounces): 3 presentation: vertex position: Right Occiput Anterior Placenta delivery description: Spontaneous and Normal Configuration Cord Vessel Description: 3 Vessels and Loose score one minute: 8 score five minutes: 9
[2023-07-31] MEDS: OXYTOCIN 30 UNITS/NS 500 ML 30 UNITS/500 ML BAG 125 UNITS IV CONT (08:12)
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
--- NOTE | 2023-07-31 11:28 | OBPPTRN ---
1050 Patient transferred to post room #234 via W/C. Support person present. Oriented to unit, room, information board, rooming in, admission packet and security measures. Patient verbalizes understanding.
[2023-07-31 16:33] LABS: Rapid Plasma Reagin Non-Reactive (NonReactive)
[2023-07-31] MEDS: FLUTICASONE/SALMETEROL 115-21 MCG INHALER 1 PUFF 2 PUFF INHALATION (20:12)
[2023-07-31] MEDS: ALBUTEROL SULFATE (*SP) AEROSOL 1 PUFF 2 PUFF INHALATION (20:12)
[2023-07-31] MEDS: MONTELUKAST SODIUM 10 MG TABLET PO (21:28)
[2023-07-31] MEDS: SERTRALINE HCL 50 MG TABLET 100 MG PO (21:28)
[2023-07-31] MEDS: LORATADINE 10 MG TABLET PO (21:28)
[2023-07-31] MEDS: CALCIUM CARBONATE (OSCAL) 500 MG TABLET PO (21:28)
[2023-07-31] MEDS: ACETAMINOPHEN 325 MG TABLET 650 MG PO (21:44)
[2023-08-01] VITALS (8 sets, daily range): BP systolic 126–145; BP diastolic 58–88; PULSE 80–100; RESP 16–18; TEMP 36.4–36.8; O2SAT 99–100
[2023-08-01 05:45] LABS: Hematocrit 32.4 % (37.0-47.0); Hemoglobin 10.1 g/dL (12.0-15.0)
--- NOTE | 2023-08-01 07:49 | P.PNOB_ITS ---
OB - PN: Subj Subjective Date/time seen: 08/01/23 07:30 Interval history: Doing well. Urinating without difficulty. Denies passing any large clots. Denies dizziness with ambulating. Tolerating po food and fluids. Bonding with infant. Having some cramping and back discomfort. Pain controlled with PO medication. Having some trouble with latching . Patient comments: pain well controlled baby status: doing well feeding status: pumping and bottle feeding Narrative: Plan credit operations specialist assistance with feeding today. OB - PN: Obj Data Labs 08/01/23 05:11 Labs: Laboratory Results - last 24 hr 07/31/23 08/01/23 00:30 05:11 Hgb 10.1 L Hct 32.4 L RPR Non-reactive OB - PN A/P Assessment and Plan (1) (normal spontaneous vaginal delivery): Code(s): O80 - Encounter for full-term uncomplicated delivery Status: Acute (2) Mother currently breast-feeding: Code(s): Z39.1 - Encounter for care and examination of lactating mother Status: Acute Plan day: 1 Plan: routine care Time Spent With Patient Time: Total time spent is greater than 50% in coordination of care (as documented) at patient's floor/unit and/or counseling patient: Review of Systems Review of Systems: All systems reviewed & are unremarkable except as noted in HPI and below Exam Narrative: Alert and oriented. Mood is pleasant and cooperative. Perineum with minimal edema. Fundus firm and below umbilicus/ difficult to palpate. Const: General: cooperative, healthy appearing, no acute distress and alert Orientation/consciousness: patient oriented x3 Limitations: no limitations Resp: Effort & Inspection: normal respiratory effort and able to speak in complete sentences Auscultation: clear to auscultation bilaterally Cardio: Rate: regular rate GI: Inspection: normal to inspection Auscultation: normal bowel sounds : General: Yes bladder normal to palpation Bimanual exam- vagina & uterus: bladder normal to palpation OB/external & speculum: vaginal bleeding Other: Fundus firm and below U Skin: General skin exam: normal color and no rashes or lesions noted Neuro: General: patient oriented x3 and moves all extremities Cognition (Neuro): normal cognition Extrem: General: normal to inspection and no calf tenderness Psych: Appearance: grossly normal Mental Status: mental status grossly normal Affect: normal affect Thought process: Normal thought process present
[2023-08-01] MEDS: PANTOPRAZOLE 40 MG TABLET PO (08:09)
[2023-08-01] MEDS: IBUPROFEN 600 MG TABLET PO ×3 (08:09→22:00)
[2023-08-01] MEDS: FLUTICASONE/SALMETEROL 115-21 MCG INHALER 1 PUFF 2 PUFF INHALATION ×2 (08:45→20:14)
--- NOTE | 2023-08-01 10:22 | WPDANLDPN2 ---
Anes-Prog Note L&D Date/Time: 08/01/23 10:22 Comfortable throughout: labor and delivery Neuraxial method: epidural Epidural/Spinal procedure site: clean & non-tender Neuro status: Neuro function grossly intact. Cardiovascular status: normal Respiratory status: normal Airway patency: baseline Mental status: baseline Post-Op hydration status: normal Vital Signs: Last Vital Signs Temp 36.4 C L 08/01/23 07:55 Pulse 85 08/01/23 07:55 Resp 18 08/01/23 07:55 BP 144/58 H 08/01/23 07:55 Pulse Ox 100 08/01/23 07:55 O2 Del Method Room Air 08/01/23 08:00 Pain score (VAS): 09/26 I/O: Intake & Output 07/31/23 08/01/23 08/01/23 23:59 07:59 15:59 Intake Total 630 800 Output Total 1500 1800 200 Balance -870 -1000 -200 Post-procedural complaints: none Patient feedback: Patient satisfied with anesthetic care.
--- NOTE | 2023-08-01 11:14 | PC.NURSE ---
On 08/01/23, the student, Louisa Martinez, provided care and completed [facility] documentation on this patient. I have reviewed the student's documentation and agree with the findings.
--- NOTE | 2023-08-01 13:11 | PC.NURSE ---
[id number] Introductions were made, then consulted with patient to assess needs related to . Mother led the conversation with her?plans to feed?her infant, the?experience so far and was encouraged to stimulate for feeding with [id number]-[id number]. Mother states she breastfed her first child for 2 years but she had difficulty latching at first too. Resources provided for inpatient and outpatient services with the feeding sheet, mom/baby guide and name written on the white board. Instructions given on cleaning, care, usage, that there should be no pain, pumping schedule for milk production, collection, and storage of human milk. Father of baby was directed in assisting with preparing the pumping parts for use. placed [id number] and mother instructed to stimulate for wakefulness to breastfeed. 1100- 1130 Purposefully rounded to assess for needs. P2 Mother encouraged understanding of the benefits of skin to skin (demonstrating unwrapping and placing upright on her chest), stimulating with massage touch, changing positions to encourage wakefulness, how to watch for early feeding cues, responsive feeding, feeding on demand (aiming for 8-12 times in 24 hours, about every 2-3 hours), milk production, building/maintaining a milk supply, duration of feeding, signs of adequate intake/output and how to record on the feeding sheet. Mother states infant continued to sleep and mother was not demonstrating stimulating for wakefulness. Reviewed positioning and ear, shoulder, hip alignment, supporting the breast to facilitate a deep latch, asymmetrical latch (off-center), leading with the chin with a big, open, wide gape and body close to mother. is sleepy and reluctant after a bath, circumcision and testing done this morning. Syringe fed 3mls of EBM to infant to reward for sucking on a gloved finger, then paced bottle fed 10mls of formula supplementation per mother's plan. Reviewed good handwashing when or touching the breast/nipples to prevent infection and how to protect her milk supply. Mother was instructed to consistently pump if her is not latching. Parents are encouraged to record pumping schedule on the feeding sheet. Patient was assessed for correct placement, flange size, to pump for comfort and nipple stretching/stimulation for adequate milk production every 3 hours (8 times in 24 hours) 1-2 times at night. Mother voiced understanding of the education shared. Resource used to facilitate learning were used with the tool. Mother voiced understanding of skin to skin, stimulating with massage touch, responsive feedings, hand expressed colostrum, talking to infant to encourage if it has been 2 -2.5 hours since the start of the last , to call if does not latch, or if there is discomfort with . Resources provided for inpatient/outpatient with feeding sheet, name written on the communication board and the mom/baby guide. Parents voiced understanding of information, demonstrated learning and will call if there is a request for assistance. Mother voiced understanding of information and will call if there is a request for assistance. Reported to the primary RN.
[2023-08-01] MEDS: metFORMIN HCL 500 MG TABLET 1000 MG PO (18:11)
[2023-08-01] MEDS: ALBUTEROL SULFATE (*SP) AEROSOL 1 PUFF 2 PUFF INHALATION (20:14)
[2023-08-01] MEDS: SERTRALINE HCL 50 MG TABLET 100 MG PO (21:58)
[2023-08-01] MEDS: LORATADINE 10 MG TABLET PO (21:58)
[2023-08-01] MEDS: MONTELUKAST SODIUM 10 MG TABLET PO (21:58)
[2023-08-02 05:55] VITALS: BP 154/96; PULSE 78; RESP 18; TEMP 36.5; O2SAT 98
[2023-08-02] MEDS: IBUPROFEN 600 MG TABLET PO ×2 (07:10→16:14)
--- NOTE | 2023-08-02 07:38 | PM.OBPNVD ---
OB - PN: Subj Subjective Date/time seen: 08/02/23 07:38 Interval history: Patient comments: no complaints and pain well controlled baby status: doing well and nursing well OB - PN: Obj Data Labs 08/01/23 05:11 OB - PN A/P Plan day: 2 Plan: routine care and follow up 6 weeks Comments: Plans micronor until long-term decision made Time Spent With Patient Time: Total time spent is greater than 50% in coordination of care (as documented) at patient's floor/unit and/or counseling patient: Exam : Bimanual exam- vagina & uterus: other (Uterus firm, nt @U)
[2023-08-02 08:10] VITALS: BP 144/74; PULSE 91; RESP 18; TEMP 36.7; O2SAT 100
[2023-08-02] MEDS: PANTOPRAZOLE 40 MG TABLET PO (08:39)
[2023-08-02] MEDS: FLUTICASONE/SALMETEROL 115-21 MCG INHALER 1 PUFF 2 PUFF INHALATION (09:15)
--- NOTE | 2023-08-02 11:41 | PC.NURSE ---
[id number] Purposefully rounded to assess needs. Mother states latches well to the right breast without pain, however, is sleepy and will not latch at this time. Father of baby and first child returns to the room with formula bottles and nipples. Mother states the child is going to help feed the baby the bottle and mother directs attention to the 10mls of EBM available to feed the infant. RN offered assistance and mother declines at this time.
[2023-08-02 12:36] VITALS: BP 147/64; PULSE 100; RESP 16; TEMP 37.1; O2SAT 99
[2023-08-02 16:00] VITALS: BP 134/84
[2023-08-02] MEDS: metFORMIN HCL 500 MG TABLET 1000 MG PO (18:25)
[2023-08-03 13:38] VITALS: BP 131/82; PULSE 72; RESP 18; TEMP 36.7; O2SAT 100
== END 2023-08-02 19:12 | disposition home or self-care (01) | DRG 807 ==
LOC: ANHLDR 07-31 08:18 → ANHOB2 07-31 10:59
PROVIDERS: Admitting Provider Obstetrics & Gynecology Gynecology; PCP Advanced Practice Midwife; Visit Provider Obstetrics & Gynecology Gynecology
DX: O13.4 Gestational [pregnancy-induced] hypertension without significant proteinuria, complicating childbirth (principal); Z37.0 Single live birth; O99.824 Streptococcus B carrier state complicating childbirth; O70.1 Second degree perineal laceration during delivery; O99.344 Other mental disorders complicating childbirth; F41.8 Other specified anxiety disorders; O69.81X0 Labor and delivery complicated by cord around neck, without compression, not applicable or unspecified; Z3A.38 38 weeks gestation of pregnancy
CPT/HCPCS: 36415; 84112; 85014; 85018; 85025; 86592; 86703; 86850; 86900; 86901; 88307; 94640; A9270; G0432; J0290; J2590; J2795; J3010; J7030; J7120

== ENCOUNTER 2023-11-14 17:23 | Outpatient (CLI) | payer BC, SELFPAY ==
--- NOTE | ~2023-11-14 | XR_ITS ---
EXAMINATION: XR foot RT min 3V DATE: 11/14/2023 17:34 INDICATION: Right foot pain TECHNIQUE: Dorsoplantar, lateral, and oblique views of the right foot were obtained. COMPARISON: None. FINDINGS: No fracture, dislocation, or subluxation. The bones, soft tissues, and joint spaces are nor mal. IMPRESSION: 1. No acute osseous abnormality. Reviewed, dictated and finalized at location F. [facility]
== END 2023-11-14 17:24 | disposition home or self-care (01) ==
LOC: ANHIMG 17:24
PROVIDERS: PCP Emergency Medicine; Visit Provider Emergency Medicine
DX: M79.671 Pain in right foot (principal)
CPT/HCPCS: 73630

== ENCOUNTER 2024-05-20 10:48 | Emergency (ER) | payer BC, SELFPAY ==
[2024-05-20 11:31] VITALS: BP 117/77; PULSE 109; RESP 16; TEMP 36.4; O2SAT 99
--- NOTE | 2024-05-20 12:16 | ED.URI ---
HPI - URI/Sore Throat General Chief Complaint: Upper Respiratory Infection Stated Complaint: Fever, Body Aches , Time Seen by Provider: 05/20/24 11:43 Source: patient, RN notes reviewed and old records reviewed Mode of arrival: ambulatory Limitations: no limitations History of Present Illness HPI Narrative: 28-year-old female to [facility] for complaint temp up to 102.8, sore throat, body aches, nausea, vomiting, dizziness, headache, bilateral ear discomfort for 3 days. Patient reports hoarseness and loss with that began yesterday. Patient reports taking negative COVID test at home and utilizing [id number]-qet-[id number] medications with little relief. Patient denies abdominal pain, bowel changes, urinary changes, chest pain, shortness of breath, difficulty swallowing. Patient able to tolerate fluids by mouth. Patient resting comfortably in exam room in no acute distress. Respirations even and nonlabored. Related Data Home Medications Medication Instructions Recorded Confirmed montelukast 10 mg tablet 10 mg PO DAILY 06/02/20 07/11/23 metformin 500 mg tablet 500 mg PO BID 06/09/21 07/11/23 calcium carbonate (Calcium 600) 600 mg PO BID 12/26/22 01/18/24 prenat.vits,laverne,qeb-fxaz-uwwpl 1 tablet PO DAILY 12/26/22 03/23/23 fluticasone 250 mcg-salmeterol 50 1 ea inhalation DAILY 07/11/23 07/11/23 mcg/dose blistr powdr for inhalation (Advair Diskus) Allergies Allergy/AdvReac Type Severity Reaction Status Date / Time garlic Allergy Severe Anaphylactic Verified 01/18/24 09:48 Shock mold Allergy Severe Anaphylactic Verified 01/18/24 09:48 Shock latex Allergy Intermediate SKIN Verified 01/18/24 09:48 BUBBLY AND TURNS PURPLE prednisone Allergy Intermediate elevated Verified 01/18/24 09:48 heart rate hydrocodone AdvReac Severe Vomiting Verified 01/18/24 09:48 Grass AdvReac Mild WATERY Uncoded 01/18/24 09:48 EYES/SKIN BURNING Review of Systems Review of Systems: All systems reviewed & are unremarkable except as noted in HPI and below Constitutional: Constitutional: Reports as per HPI, Reports body ache(s), Reports fever(s) and Reports headache(s) Eyes: Eyes: Reports no additional eye complaints ENT: Reports as per HPI, Reports otalgia ( Bilateral pressure), Reports hoarseness and Reports sore throat Cardiovascular: Cardiovascular: Reports no additional cardiovascular complaints, Denies chest pain and Denies dyspnea Respiratory: Respiratory: Reports no additional respiratory complaints, Denies cough and Denies dyspnea Gastrointestinal: Gastrointestinal: Reports as per HPI, Reports nausea and Reports vomiting Musculoskeletal: Musculoskeletal: Reports no additional musculoskeletal complaints Neurologic: Reports system reviewed and no additional complaints, except as documented Psychiatric: Psychiatric: Reports no additional psychiatric complaints PMFSH Past Medical History Medical History Anemia Anxiety Arthritis Asthma Bleeding gums Bleeding nose Chronic headaches Depression Food allergy History of hoarseness Keratosis Latex allergy Left ankle sprain Miscarriage Morbid obesity Nausea & vomiting Obese Peroneal neuritis and not yet delivered Regurgitation of food Sciatica associated with disorder of lumbar spine Seasonal allergies Seizures SOB (shortness of breath) on exertion Vision loss Weight gain Family History Family History Mother Asthma Grandparent Asthma Cancer Diabetes mellitus Hypertension Depression Heart disease Cerebrovascular accident Thyroid disorder COPD (chronic obstructive pulmonary disease) Other Arthritis Family history of arthritis Neuropathy Social History Social History Social History: Caffeine- occasionally soda Smoking statu
[2024-05-20 12:20] LABS: EDSTREPNEGPOS1 Positive
== END 2024-05-20 12:33 | disposition home or self-care (01) ==
PROVIDERS: Emergency Provider Nurse Practitioner Family; PCP Emergency Medicine
DX: J02.0 Streptococcal pharyngitis (principal); Z20.822 Contact with and (suspected) exposure to COVID-19; E66.01 Morbid (severe) obesity due to excess calories; Z68.42 Body mass index [BMI] 45.0-49.9, adult; M19.90 Unspecified osteoarthritis, unspecified site; J45.909 Unspecified asthma, uncomplicated
CPT/HCPCS: 87426; 87880; 99213; G0463